=== PATIENT | female | born 1990 | race Caucasian/White ===

== ENCOUNTER 2017-10-26 12:51 | Emergency (ER) | payer OTHER ==
[2017-10-26] MEDS ORDERED: LORAZEPAM 1 MG TABLET PO ONE (13:28)
--- NOTE | 2017-10-26 13:29 | ER Document Report ---
ED Medical Screen (RME) - General Chief Complaint: Anxiety Stated Complaint: POSSIBLE ANXIETY Time Seen by Provider: 10/26/17 13:28 Notes: 27 years old female presents today with panic attack, with the difficulty in breathing numbness tingling sensation throughout the whole body occurred prior to arrival. Has a history of panic attack and anxiety happened 2 times this year. States that she is not taking any medications. She is a smoker and also smoked cannabis. On examination appeared to be having acute anxiety attack. TRAVEL OUTSIDE OF THE [place] IN LAST 30 DAYS: No - Related Data Allergies/Adverse Reactions: No Known Allergies Allergy (Verified 10/26/17 12:52) Physical Exam - Vital signs Vitals: Temp Pulse Resp BP Pulse Ox 98.5 F 96 20 127/68 H 100 10/26/17 12:58 10/26/17 12:58 10/26/17 12:58 10/26/17 12:58 10/26/17 12:58 Course - Vital Signs Vital signs: Temp Pulse Resp BP Pulse Ox 98.5 F 96 20 127/68 H 100 10/26/17 12:58 10/26/17 12:58 10/26/17 12:58 10/26/17 12:58 10/26/17 12:58 Doctor's Discharge - Discharge Instructions: Anxiety ([facility]) Referrals: PATRICIA MAE MD [Primary Care Provider] - Follow up as needed
[2017-10-26 14:15] LABS: APPEARANCE,URINE CLEAR; BILIRUBIN,URINE NEGATIVE (NEGATIVE); COLOR,URINE STRAW; GLUCOSE, URINE NEGATIVE (NEGATIVE); KETONES,URINE TRACE mg/dL (NEGATIVE); LEUKOCYTE ESTERASE,URINE NEGATIVE (NEGATIVE); NITRITE,URINE NEGATIVE (NEGATIVE); PROTEIN,URINE NEGATIVE (NEGATIVE); URINE SPECIFIC GRAVITY 1.004; UROBILINOGEN,URINE NEGATIVE mg/dL (<2.0)
[2017-10-26 14:35] LABS: URINE AMPHETAMINES SCREEN NEGATIVE; URINE BARBITURATES SCREEN NEGATIVE; URINE BENZODIAZEPINES SCREEN NEGATIVE; URINE COCAINE SCREEN NEGATIVE; URINE MARIJUANA (THC) SCREEN UNCONFIRMED POSITIVE; URINE METHADONE SCREEN NEGATIVE; URINE PHENCYCLIDINE SCREEN NEGATIVE
--- NOTE | 2017-10-26 14:36 | ER Document Report ---
ED General - General Chief Complaint: Anxiety Stated Complaint: POSSIBLE ANXIETY Time Seen by Provider: 10/26/17 13:28 TRAVEL OUTSIDE OF THE [place] IN LAST 30 DAYS: No - HPI Patient complains to provider of: Shortness of breath numbness tingling Notes: Patient coming for Apparently had a possible panic attack patient states has a history of anxiety in the past. Patient states she began breathing heavily hyperventilating with numbness and tingling in her face and her bilateral upper extremities. [facility] was [facility] [employer] and was given a dose of Ativan. Upon my evaluation patient feeling much better. Patient denies any fever chills nausea vomiting diarrhea or recent travel. She is currently is on antianxiety medication - Related Data Allergies/Adverse Reactions: No Known Allergies Allergy (Verified 10/26/17 12:52) Past Medical History - Social History Smoking Status: Never Smoker Drug Abuse: Marijuana Family History: Reviewed & Not Pertinent Patient has suicidal ideation: No Patient has homicidal ideation: No Renal/ Medical History: Denies: Hx Peritoneal Dialysis Review of Systems - Review of Systems Constitutional: No symptoms reported EENT: No symptoms reported Cardiovascular: No symptoms reported Respiratory: No symptoms reported Gastrointestinal: Nausea Genitourinary: No symptoms reported Female Genitourinary: No symptoms reported Musculoskeletal: No symptoms reported Skin: No symptoms reported Hematologic/Lymphatic: No symptoms reported Neurological/Psychological: Other - Anxiety -: Yes All other systems reviewed and negative Physical Exam - Vital signs Vitals: Temp Pulse Resp BP Pulse Ox 98.5 F 96 20 127/68 H 100 10/26/17 12:58 10/26/17 12:58 10/26/17 12:58 10/26/17 12:58 10/26/17 12:58 Interpretation: Normal - General General appearance: Appears well, Alert - HEENT Head: Normocephalic, Atraumatic Eyes: Normal Pupils: PERRL - Respiratory Respiratory status: No respiratory distress Chest status: Nontender Breath sounds: Normal Chest palpation: Normal - Cardiovascular Rhythm: Regular Heart sounds: Normal auscultation Murmur: No - Abdominal Inspection: Normal Distension: No distension Bowel sounds: Normal Tenderness: Nontender Organomegaly: No organomegaly - Back Back: Normal, Nontender - Extremities General upper extremity: Normal inspection, Nontender, Normal color, Normal ROM , Normal temperature General lower extremity: Normal inspection, Nontender, Normal color, Normal ROM , Normal temperature, Normal weight bearing. No: Demar's sign - Neurological Neuro grossly intact: Yes Cognition: Normal Orientation: AAOx4 [place]isha Coma Scale Eye Opening: Spontaneous [place] Coma Scale Verbal: Oriented [place] Coma Scale Motor: Obeys Commands [place] Coma Scale Total: 15 Speech: Normal Motor strength normal: LUE, RUE, LLE, RLE Sensory: Normal - Psychological Associated symptoms: Normal affect, Normal mood - Skin Skin Temperature: Warm Skin Moisture: Dry Skin Color: Normal Course - Re-evaluation Re-evalutation: 10/26/17 19:35 Patient's symptoms are consistent with anxiety attack. Patient, at this time recommended Vistaril for anxiety patient was at the local grocery store for Pepto-Bismol for nausea explained patient that we will give her Zofran for her nausea. Patient states understanding able tolerate p.o. normal vital signs discharged home - Vital Signs Vital signs: Temp Pulse Resp BP Pulse Ox 97.8 F 80 18 126/64 H 99 10/26/17 14:48 10/26/17 14:48 10/26/17 14:48 10/26/17 14:48 10/26/17 14:48 - Laboratory Laboratory results interpreted by me: 10/26/17 13:51 Urine Ketones TRACE H Discharge - Discharge Clinical Impression: Panic attack, Nausea Condition: Good Disposition: HOME, SELF-CARE Instructions: Anxiety ([facility]), Nausea or Vomiting, Nonspecific ([facility]) Additional Instructions: Your evaluation today is consistent with a panic attack. I would recommend that you follow-up with your primary care physician as needed. You may use Zofran as prescribed for any nausea that she may have Vistaril as prescribed for any anxiety please take it at night return to ER symptoms worsen Prescriptions: Hydroxyzine Pamoate [Vistaril 25 mg Capsule] 25 mg PO QHS #14 capsule Ondansetron [Zofran Odt 4 mg Tablet] 4 mg PO Q4HP PRN #30 tab.rapdis PRN Reason: Forms: Return to Work Referrals: PATRICIA MAE MD [ACTIVE STAFF] - Follow up as needed
[2017-10-26 14:51] VITALS: BP 126/64
== END 2017-10-26 14:51 | disposition home or self-care (01) ==
LOC: ER 12:51
DX: F41.0 Panic disorder [episodic paroxysmal anxiety] (principal); R11.0 Nausea; F41.9 Anxiety disorder, unspecified; R06.02 Shortness of breath; R20.0 Anesthesia of skin
CPT/HCPCS: 80307; 81001; 81025; 99284